=== PATIENT | female | born 1945 | race Hispanic/Latino ===

== ENCOUNTER 2021-03-30 15:20 | Inpatient (IN) | payer MEDICARE, BC ==
[2021-03-30] MEDS ORDERED: Rocuronium Bromide 10 MG/ML (10ML VIAL) ONE (15:30)
[2021-03-30] MEDS ORDERED: Propofol 1,000 MG/100 ML VIAL IV ONE (15:57)
[2021-03-30 16:19] LABS: #Eosinphils 0.2 10x3/uL (0.0-0.5); #Monocytes 0.8 10x3/uL (0.0-1.1); #Neutrophils 6.8 10x3/uL (1.5-8.4); %Basophils 0.3 % (0.0-2.0); %Eosinophils 2.3 % (0.0-6.0); %Lymphocytes 8.4 % (18.0-47.0); %Monocytes 9.7 % (0.0-10.0); Mean Corpuscular HGB CONC 33.6 g/dL (32.0-36.0); Mean Corpuscular Hemoglobin 33.6 pg (27.0-33.0); Mean Platelet Volume 9.1 fl (7.4-10.4); Platelet Count 317 10x3/uL (150-450); RBC Distribution Width 13.2 % (11.5-14.5); Red Blood Cell (RBC) Count 3.27 10x6/uL (3.90-5.03); White Blood Cell (WBC) Count 8.6 10x3/uL (3.5-10.5)
[2021-03-30 16:20] LABS: Bilirubin Neg (Negative); Blood, Urine Negative (Negative); Clarity Clear (Clear); Glucose, Urine (Dipstick) Normal (Negative); Ketone, Urine Negative (Negative); Leukocyte Negative (Negative); Nitrite Negative (Negative); Protein, Urine (Dipstick) 30 mg/dl (Neg-Trace); Specific Gravity, Urine 1.015 (1.002-1.036); Urobilinogen Normal mg/dL (Less than 2)
[2021-03-30 16:26] LABS: INR-International Normal Ratio 0.9; PTT 24.8 sec (22.0-33.0); Prothrombin Time 9.9 sec (9.5-12.1)
[2021-03-30 16:28] LABS: ALT (SGPT) 16 U/L (8-55); AST (SGOT) 25 U/L (5-34); Albumin 3.6 g/dL (3.4-4.8); Alkaline Phosphatase 83 U/L (40-110); Anion Gap 15 mmol/L (10-20); BUN (Urea Nitrogen) 15 mg/dL (9.8-20.1); Bilirubin, Total 0.3 mg/dL (0.2-1.2); Calc. Creatinine Clearance 0 mL/min (70-130); Calcium 8.3 mg/dL (7.8-10.44); Carbon Dioxide 27 mmol/L (23-31); Chloride 89 mmol/L (98-107); Globulin 3.8 g/dL (2.4-3.5); Glucose 140 mg/dL (83-110); Magnesium 1.8 mg/dL (1.6-2.6); Potassium 4.8 mmol/L (3.5-5.1); Protein, Total 7.4 g/dL (5.8-8.1); Sodium 126 mmol/L (136-145)
[2021-03-30] MEDS ORDERED: Dexamethasone 10 MG/ML VIAL ONE (16:29)
[2021-03-30 16:30] LABS: Bacteria/HPF None Seen HPF (None Seen); RBC/HPF 0-3 HPF (0-3); Squamous Epithelial 0-3 HPF (0-3); WBC/HPF 0-3 HPF (0-3)
[2021-03-30] MEDS ORDERED: Ondansetron PF 4 MG/2 ML Vial ONE (16:30)
[2021-03-30] MEDS ORDERED: Cefepime 1 GM VIAL ONE (16:30)
[2021-03-30 17:11] LABS: Actual Bicarbonate (HCO3a) 28.3 mEq/L (22-28); Base Excess (BEa) 1.1 mEq/L (-2.0 to +3.0); CO2 Tension 57.2 mmHg (35.0-45.0); Calcium, Ionized (arterial) 1.17 mmol/L (1.12-1.30); Carboxyhemoglobin (COHb) 0.3 gm% (0.0-3.0); Hemoglobin (Hb) 11.7 g/dL (12.0-16.0); O2 Tension (PaO2), arterial 556.3 mmHg (> 70.0); Puncture Site RRA; pH, Arterial 7.31 (7.35-7.45)
[2021-03-30 17:30] LABS: SARS-CoV-2 NAA Rapid Test DETECTED (NotDetected)
[2021-03-30] MEDS ORDERED: VANCOMYCIN HCL IVPB SCH (17:45)
[2021-03-30] MEDS ORDERED: Ventilator Sedation Protocol 1 EACH FS PRN (17:45)
[2021-03-30] MEDS ORDERED: WATER IVPB SCH (17:45)
[2021-03-30] MEDS ORDERED: DEXTROSE IVPB SCH (17:45)
[2021-03-30] MEDS ORDERED: ADMIXTURE FEE IVPB SCH (17:45)
[2021-03-30] MEDS ORDERED: Dexamethasone 10 MG in Sodium Chloride 0.9% 50 ML IVPB SCH ×2 (18:00→21:00)
[2021-03-30] MEDS ORDERED: Dexamethasone 10 MG/ML VIAL SLOW IVP SCH (18:15)
[2021-03-30] MEDS ORDERED: Propofol BOLUS 1,000 MG/100 ML VIAL IV PRN (18:15)
[2021-03-30] MEDS ORDERED: DISCONTINUE PREVIOUS NARCOTIC PAIN MEDICATIONS AND BENZODIAZEPINES FS SCH (18:15)
[2021-03-30] MEDS ORDERED: Fentanyl BOLUS 250 ML IVPB PRN (18:15)
[2021-03-30] MEDS ORDERED: Propofol 1,000 MG/100 ML VIAL IV PRN (18:15)
[2021-03-30] MEDS ORDERED: Lorazepam 2 MG/ML VIAL SLOW IVP PRN (18:15)
[2021-03-30] MEDS ORDERED: Morphine 2 MG/ML VIAL SLOW IVP PRN (18:15)
[2021-03-30 19:48] LABS: Troponin I 0.351 ng/mL (< 0.028)
[2021-03-30 20:20] VITALS: BMI 16.5
[2021-03-30] MEDS: Sodium Chloride 0.9% 1,000 ML IV SCH (20:37)
[2021-03-30] MEDS ORDERED: Midazolam HCl 2 mg/2 ml Vial SLOW IVP PRN (20:56)
[2021-03-30] MEDS ORDERED: Enoxaparin Sodium 40 MG/0.4 ML SYRINGE SC SCH (21:00)
[2021-03-30] MEDS ORDERED: Sodium Chloride 0.9% 500 ML IV SCH (21:00)
[2021-03-30] MEDS ORDERED: Metoprolol Tartrate 25 MG TAB PO SCH (21:00)
[2021-03-30] MEDS ORDERED: Famotidine/PF 20 mg/2ml Vial SLOW IVP SCH (21:00)
[2021-03-30] MEDS: Albumin 25% 25 GM/100 ML BOT IVPB SCH (21:09)
[2021-03-30] MEDS ORDERED: Ventilator Sedation Protocol 1 EACH FS SCH (22:15)
[2021-03-30 22:34] LABS: Troponin I 0.548 ng/mL (< 0.028)
[2021-03-30] MEDS: fentaNYL Citrate-0.9 % NaCl/PF 100 ML IVPB SCH (23:55)
[2021-03-31] MEDS: Norepinephrine 8 MG/0.9% NS 250 ML IVPB SCH (01:55)
[2021-03-31 02:57] VITALS: TEMP 98
[2021-03-31] MEDS: Albumin 25% 25 GM/100 ML BOT IVPB SCH (03:19)
[2021-03-31 04:10] LABS: Actual Bicarbonate (HCO3a) 22.8 mEq/L (22-28); Base Excess (BEa) -1.9 mEq/L (-2.0 to +3.0); CO2 Tension 38.4 mmHg (35.0-45.0); Calcium, Ionized (arterial) 1.08 mmol/L (1.12-1.30); Carboxyhemoglobin (COHb) 0.3 gm% (0.0-3.0); Hemoglobin (Hb) 9.5 g/dL (12.0-16.0); O2 Tension (PaO2), arterial 146.5 mmHg (> 70.0); Potassium - ABG Lab 4.3 mmol/L (3.70-5.30); Puncture Site RRA; pH, Arterial 7.39 (7.35-7.45)
[2021-03-31 05:04] VITALS: BP 115/63
[2021-03-31 05:47] LABS: Hemoglobin 8.7 g/dL (12.0-15.5); Mean Corpuscular HGB CONC 33.9 g/dL (32.0-36.0); Mean Corpuscular Hemoglobin 33.6 pg (27.0-33.0); Mean Corpuscular Volume 99.2 fl (81.6-98.3); Mean Platelet Volume 9.3 fl (7.4-10.4); Platelet Count 268 10x3/uL (150-450); RBC Distribution Width 13.2 % (11.5-14.5); Red Blood Cell (RBC) Count 2.59 10x6/uL (3.90-5.03)
[2021-03-31 05:51] LABS: Anion Gap 12 mmol/L (10-20); BUN (Urea Nitrogen) 9 mg/dL (9.8-20.1); Calc. Creatinine Clearance 52 mL/min (70-130); Calcium 8.3 mg/dL (7.8-10.44); Carbon Dioxide 23 mmol/L (23-31); Chloride 99 mmol/L (98-107); Glucose 169 mg/dL (83-110); Potassium 4.2 mmol/L (3.5-5.1); Sodium 130 mmol/L (136-145)
[2021-03-31 06:19] LABS: MDiff Complete? YES
[2021-03-31 06:20] LABS: CKMB 3.3 ng/mL (0-6.6)
[2021-03-31 06:21] LABS: Band 18 % (5-11); Lymphocytes 1 % (21-51); Monocytes 6 % (0-10); Myelocyte 1 % (0-0); Neutrophil 74 % (42-75)
[2021-03-31 06:23] LABS: Platelet Morphology Comment Appears Adequate; RBC Morphology Normal
[2021-03-31] MEDS: Dexamethasone 20 MG/5 ML VIAL SLOW IVP SCH ×2 (06:46→17:39)
[2021-03-31] MEDS: Sodium Chloride 0.9% 1,000 ML IV SCH (07:10)
[2021-03-31] MEDS ORDERED: Enoxaparin Sodium 80 MG/0.8 ML SYRINGE SC SCH (09:00)
[2021-03-31] MEDS: Pantoprazole 40 MG VIAL IVP SCH (09:57)
[2021-03-31] MEDS: Enoxaparin Sodium 40 MG/0.4 ML SYRINGE SC SCH ×3 (11:55→22:03)
[2021-03-31] MEDS: Lorazepam 2 MG/ML VIAL SLOW IVP PRN (17:36)
[2021-03-31] MEDS: Morphine 4 MG/ML VIAL SLOW IVP PRN (17:36)
[2021-03-31] MEDS: FLU VACC QS2021-22(65YR UP)/PF 240 MCG/0.7 ML SYRINGE IM ONE ×2 (19:41→19:47)
[2021-03-31] MEDS ORDERED: Communication Order-Pharmacy FS ONE (23:03)
[2021-04-01] MEDS: Morphine 4 MG/ML VIAL SLOW IVP PRN (05:52)
[2021-04-01] MEDS: Dexamethasone 20 MG/5 ML VIAL SLOW IVP SCH (06:44)
[2021-04-01] MEDS: fentaNYL Citrate-0.9 % NaCl/PF 100 ML IVPB SCH (06:44)
[2021-04-01] MEDS: Norepinephrine 8 MG/0.9% NS 250 ML IVPB SCH (06:44)
[2021-04-01] MEDS: Enoxaparin Sodium 40 MG/0.4 ML SYRINGE SC SCH (07:50)
[2021-04-01] MEDS: Pantoprazole 40 MG VIAL IVP SCH (07:50)
[2021-04-01] MEDS: Lorazepam 2 MG/ML VIAL SLOW IVP PRN (08:03)
== END 2021-04-01 11:20 | disposition expired | DRG 208 ==
LOC: CSHERS 15:20 → CSHICU 19:41
PROVIDERS: ADMIT Internal Medicine; ATTEND Family Medicine
PROC: 5A1935Z Respiratory Ventilation, Less than 24 Consecutive Hours (ICD-10-PCS; principal; 2021-03-30)
PROC: 0BH17EZ Insertion of Endotracheal Airway into Trachea, Via Natural or Artificial Opening (ICD-10-PCS; 2021-03-30)
PROC: 8E0ZXY6 Isolation (ICD-10-PCS; 2021-03-30)
PROC: 3E033XZ Introduction of Vasopressor into Peripheral Vein, Percutaneous Approach (ICD-10-PCS; 2021-03-30)
DX: U07.1 COVID-19 (principal); J12.82 Pneumonia due to coronavirus disease 2019; E43 Unspecified severe protein-calorie malnutrition; Z66 Do not resuscitate; J96.21 Acute and chronic respiratory failure with hypoxia; A41.9 Sepsis, unspecified organism; R65.21 Severe sepsis with septic shock; I21.A1 Myocardial infarction type 2; E87.1 Hypo-osmolality and hyponatremia; Z68.1 Body mass index [BMI] 19.9 or less, adult; R64 Cachexia; J84.112 Idiopathic pulmonary fibrosis; R13.10 Dysphagia, unspecified; I10 Essential (primary) hypertension; I71.2 Thoracic aortic aneurysm, without rupture; R62.7 Adult failure to thrive; E78.5 Hyperlipidemia, unspecified; I25.10 Atherosclerotic heart disease of native coronary artery without angina pectoris; I95.9 Hypotension, unspecified; Z85.3 Personal history of malignant neoplasm of breast; Z90.13 Acquired absence of bilateral breasts and nipples; Z88.8 Allergy status to other drugs, medicaments and biological substances; Z79.899 Other long term (current) drug therapy; Z90.49 Acquired absence of other specified parts of digestive tract; Z93.1 Gastrostomy status
CPT/HCPCS: 31500; 36415; 36416; 36600; 51702; 71045; 80048; 80053; 81003; 81015; 82533; 82553; 82805; 83605; 83735; 83880; 84443; 84484; 85025; 85379; 85520; 85610; 85730; 86850; 86900; 86901; 87040; 87086; 87804; 93005; 93010; 93306; 94002; 94003; 94760; 96361; 96365; 96366; 96367; 96375; 99292; C9113; J0692; J1100; J1650; J2060; J2270; J2405; J2704; J3370; J7030; J7050; J7070; P9047; U0002